=== PATIENT | female | born 1995 | race African-American/Black ===

== ENCOUNTER 2016-07-17 11:49 | Emergency (ER) | payer OTHER, MEDICAID ==
[~2016-07-17] VITALS: Ht 162.6 cm; Wt 86.0 kg
[~2016-07-17 11:49] MED LIST: ARIP10TA14; BENZ1TAB7; FLUO10CA63
[2016-07-17 12:02] VITALS: BP 116/69
[2016-07-17] MEDS ORDERED: ACETAMINOPHEN 500MG TABLET PO ONE (12:45)
== END 2016-07-17 13:20 | disposition left against medical advice (07) ==
LOC: ER 11:51
DX: M25.512 Pain in left shoulder (principal); M25.522 Pain in left elbow; F17.210 Nicotine dependence, cigarettes, uncomplicated; Z79.899 Other long term (current) drug therapy
CPT/HCPCS: 99281

== ENCOUNTER 2016-08-04 11:27 | Emergency (ER) | payer OTHER, MEDICAID ==
[~2016-08-04] VITALS: Ht 162.6 cm; Wt 85.0 kg
[~2016-08-04 11:27] MED LIST changes: +ABIL10; -ARIP10TA14
[2016-08-04 13:23] LABS: BASOPHILS % 0.5 % (0.0-2.0); EOSINOPHILS % 2.1 % (0.0-5.0); HEMATOCRIT. 40.7 % (36.0-48.0); HEMOGLOBIN. 13.7 g/dL (12.0-16.0); LYMPHOCYTES % 18.9 % (20.0-50.0); MEAN CORPUSCULAR HEMOGLOBIN 30.1 pg (28.0-32.0); MEAN CORPUSCULAR VOLUME 89.1 fL (81.0-99.0); MONOCYTES % 8.3 % (2.0-8.0); NEUTROPHILS % 70.2 % (40.0-76.0); PLATELET 263 x1000/uL (130-400); RED BLOOD CELL COUNT 4.57 mill/uL (4.2-5.4); RED CELL DISTRIBUTION WIDTH 13.7 % (11.6-14.6)
[2016-08-04 13:30] LABS: CARBON DIOXIDE 30 mEq/L (21-32); CHLORIDE 107 mEq/L (98-107)
[2016-08-04 13:39] LABS: *AMPHETAMINES SCREEN URINE NEGATIVE (NEGATIVE); *BARBITURATES SCREEN URINE NEGATIVE (NEGATIVE); *BENZODIAZEPINES SCREEN URINE NEGATIVE (NEGATIVE); *COCAINE SCREEN URINE NEGATIVE (NEGATIVE); METHADONE URINE SCREEN NEGATIVE (NEGATIVE); PHENCYCLIDINE URINE SCREEN NEGATIVE (NEGATIVE)
[2016-08-04 13:42] LABS: CANNABINOID URINE SCREEN PRESUMTIVE POSITIVE (NEGATIVE); OPIATES URINE SCREEN PRESUMTIVE POSITIVE (NEGATIVE)
[2016-08-04 15:10] VITALS: BP 120/88
== END 2016-08-04 15:27 | disposition home or self-care (01) ==
LOC: ER 13:00
DX: R19.7 Diarrhea, unspecified (principal); I10 Essential (primary) hypertension; M79.1 Myalgia
CPT/HCPCS: 36415; 80048; 80305; 85025; 99284; Z7610

== ENCOUNTER 2016-08-08 05:14 | Emergency (ER) | payer OTHER, MEDICAID ==
[~2016-08-08] VITALS: Ht 167.6 cm; Wt 72.0 kg
[2016-08-08] MEDS ORDERED: METHYLPREDNISOLONE SOD SUCC 125 MG/2 ML VIAL IM ONE (06:30)
[2016-08-08] MEDS ORDERED: DIPHENHYDRAMINE 25MG CAPSULE PO ONE (06:30)
[2016-08-08 07:18] VITALS: BP 106/63
== END 2016-08-08 07:22 | disposition home or self-care (01) ==
LOC: ER 05:14
DX: L29.9 Pruritus, unspecified (principal); F41.9 Anxiety disorder, unspecified; F32.9 Major depressive disorder, single episode, unspecified; M79.7 Fibromyalgia; F17.200 Nicotine dependence, unspecified, uncomplicated; F12.10 Cannabis abuse, uncomplicated
CPT/HCPCS: 81025; 96372; 99283; J2930; J7030; Q0163